=== PATIENT | female | born 1955 | race Hispanic/Latino ===

== ENCOUNTER → 2020-08-03 | Outpatient (CLI) | payer BC, OTHER ==
[~2020-08-03] MED LIST: ADVIL200 M1 PO; ASPIRIN81 MG PO; BIOTIN PO; CALCIUM 500 +1 EACH PO; CALCIUM500 M1 PO; COVID-19 VACC, MRNA(MODERNA)/PF 100 MCG/0.5 ML VIAL IM ONE; Estradiol PO; METFORMIN HCL500 MG PO; OMEGA 3 FISH O1 EACH PO; OMEGA-31000 MG PO; PRILOSEC20 MG PO; SERTRALINE HCL25 MG PO; VITAMIN D400 UNIT PO; ZOLOFT25 MG PO
== END ==
LOC: VACCPMC 12:08
DX: Z23 Encounter for immunization (principal); Z20.822 Contact with and (suspected) exposure to COVID-19
CPT/HCPCS: 91301

== ENCOUNTER → 2020-08-31 | Outpatient (CLI) | payer BC, OTHER | END | disposition home or self-care (01) | LOC: VACCPMC 10:13 | DX: Z23 Encounter for immunization (principal); Z20.822 Contact with and (suspected) exposure to COVID-19 | CPT/HCPCS: 91301 ==